=== PATIENT | male | born 1985 | race Caucasian/White ===

== ENCOUNTER 2017-08-21 11:01 | Emergency (ER) | payer OTHER ==
[2017-08-21] MEDS: KETOROLAC 30 MG INJ IM (11:25)
== END 2017-08-21 11:59 | disposition home or self-care (01) ==
LOC: FTE 11:01
DX: J06.9 Acute upper respiratory infection, unspecified (principal); F17.210 Nicotine dependence, cigarettes, uncomplicated
CPT/HCPCS: 96372; 99284-25

== ENCOUNTER 2017-09-06 08:23 | Emergency (ER) | payer OTHER ==
[2017-09-06] MEDS: KETOROLAC 30 MG INJ IM (08:47)
== END 2017-09-06 10:08 | disposition home or self-care (01) ==
LOC: FTE 08:23
DX: M54.9 Dorsalgia, unspecified (principal); F17.210 Nicotine dependence, cigarettes, uncomplicated
CPT/HCPCS: 96372; 99284-25

== ENCOUNTER 2017-09-18 07:40 | Emergency (ER) | payer OTHER | END 2017-09-18 09:54 | disposition home or self-care (01) | LOC: FTE 07:40 | DX: M54.32 Sciatica, left side (principal); F17.210 Nicotine dependence, cigarettes, uncomplicated | CPT/HCPCS: 93971; 99284-25 ==

== ENCOUNTER 2017-10-08 03:50 | Emergency (ER) | payer OTHER ==
[2017-10-08] MEDS: KETOROLAC 60 MG INJ IM (04:25)
== END 2017-10-08 04:30 | disposition home or self-care (01) ==
LOC: FTE 03:50
DX: M54.42 Lumbago with sciatica, left side (principal); F17.210 Nicotine dependence, cigarettes, uncomplicated
CPT/HCPCS: 96372; 99284-25